=== PATIENT | female | born 1985 | race Two or more races ===

== ENCOUNTER 2018-12-09 01:16 | Emergency (ER) | payer MEDICARE ==
[~2018-12-09] VITALS: Ht 154.9 cm; Wt 54.0 kg
[2018-12-09] MEDS ORDERED: LIDOCAINE HCL/PF 1% 10 MG/ML 5ML VIAL IJ ONE (02:30)
[2018-12-09] MEDS ORDERED: BACITRACIN ZINC OINT UDPKT TOP ONE (02:30)
[2018-12-09 04:02] VITALS: BP 125/72
== END 2018-12-09 08:30 | disposition home or self-care (01) ==
LOC: ER 01:16
DX: L02.31 Cutaneous abscess of buttock (principal)
CPT/HCPCS: 10061; 99284; J3490